=== PATIENT | female | born 1935 | race Caucasian/White ===

== ENCOUNTER → 2018-06-30 | Outpatient (CLI) | payer MEDICARE ==
[~2018-06-30] MED LIST: AMIODARONE HCL200 MG PO; BENEFIBER1 EACH; CALCIUM 1,0001 EACH PO; CENTRUM CHEWAB1 EACH PO; CENTRUM SILVER1 EAC3 PO; CRANBERRY500 M1 PO; DULCOLAX1 EACH; ESIDRIX25 MG PO; EVISTA60 MG PO; FISH OIL500 MG PO; METOPROLOL TART25 MG PO; MOBIC7.5 MG PO; MURO-12815 M1; PANTOPRAZOLE SO40 MG PO; PRESERVISION T1 EACH PO; PROBIOTIC COMP1 EACH; TOPROL XL50 MG PO; VITAMIN D31000 UNI1 PO; VITAMIN E400 UNI1 PO; WARFARIN SODIUM3 MG PO; WARFARIN SODIUM4 MG PO; ZESTRIL20 MG PO; ZOLOFT25 MG PO; ZOLOFT50 MG PO
--- NOTE | 2018-06-30 09:00 | Diagnostic Imaging Report ---
PROCEDURE:EXTREMITY ULTRASOUND COMPARISON:None. INDICATIONS:Arm Swelling TECHNIQUE:Color duplex Doppler ultrasound evaluation analysis was performed in the right upper extremity in the area of clinical concern. FINDINGS: In the area of clinical concern in the right upper arm, there is a 9.1 x 3.5 x 4.9 cm predominately cystic mass. There are internal septations and there is a solid nodular component. There is possibly mild Doppler flow in the solid component. There is also peripheral Doppler flow. The mass appears separate from the adjacent bony structures. CONCLUSION: Indeterminate 9.1 cm predominately cystic mass in the right upper arm with solid component, septations, and possible internal Doppler flow. This mass is incompletely characterized by ultrasound. An MRI with contrast is suggested for further evaluation. Dictated by: CLARENCE KIRKLAND M.D. on 06/30/2018 at 9:06 Electronically approved by: CLARENCE KIRKLAND M.D. on 06/30/2018 at 9:06
== END ==
LOC: US 07:32
DX: M79.89 Other specified soft tissue disorders (principal)
CPT/HCPCS: 76882

== ENCOUNTER → 2018-07-20 | Outpatient (CLI) | payer MEDICARE ==
--- NOTE | 2018-07-20 17:23 | Diagnostic Imaging Report ---
TECHNIQUE: Magnetic resonance imaging of the RIGHT SHOULDER was performed WITHOUT injected contrast. HISTORY: Arm swelling, rupture of tendon COMPARISON: MRI of the right humerus July 06, 2018 FINDINGS: MUSCLES AND TENDONS: Rotator Cuff: Tendons: Supraspinatus and Infraspinatus: A full-thickness tear of the anterior supraspinatus tendon, the full-thickness defect measures 1 cm (AP) x 2.4 cm (ML). Teres Minor: Intact Subscapularis: Full-thickness tearing of the superior fibers with 1.1 cm of medial retraction. The biceps kaela is not visible. Muscles: Moderate supraspinatus and mild infraspinatus atrophy. Biceps Tendon: The long head of the biceps tendon is not seen within the intertubercular groove or adjacent to the proximal humerus. GLENOHUMERAL JOINT: Glenoid Labrum: Complex tearing and attenuation, most notably the superior labrum. Articular Cartilage: Diffuse low-grade erosion. Joint Fluid: Trace effusion. ACROMIOCLAVICULAR JOINT: Moderate hypertrophic degenerative changes of the acromioclavicular joint. Synovitis and small effusion. BONE: The acromion is unremarkable. No focal or infiltrative bone marrow replacing abnormality. No acute fracture. SOFT TISSUES: Otherwise, unremarkable. IMPRESSION: 1. 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 2. Full-thickness tear involving the anterior supraspinatus tendon. 3. Full-thickness tear involving the superior subscapularis tendon. 4. Moderate acromioclavicular and glenohumeral degenerative changes, including degenerative tearing of the superior labrum. Signed by: Dr. Keny De Jesus D.O., M.M.M. on 07/20/2018 5:19 PM
== END ==
LOC: MRI 15:39
DX: M79.89 Other specified soft tissue disorders (principal)

== ENCOUNTER → 2021-05-20 | Outpatient (CLI) | payer MEDICARE | LOC: US 10:19 | PROVIDERS: ATTEND Internal Medicine Nephrology | DX: N18.32 Chronic kidney disease, stage 3b (principal) | CPT/HCPCS: 76770; 76857 ==

== ENCOUNTER 2021-08-13 16:22 | Emergency (ER) | payer MEDICARE ==
[~2021-08-13] VITALS: Ht 162.6 cm; Wt 64.4 kg
[2021-08-13] MEDS ORDERED: ASPIRIN 81 MG CHEW TAB PO ONE (17:00)
[2021-08-13 17:07] LABS: BASOPHILS % 0.8 % (0.0-1.0); EOSINOPHILS # (AUTO) 0.2 (0.0-0.4); EOSINOPHILS % 3.4 % (0.0-6.0); HEMATOCRIT 34.8 % (34.2-44.1); HEMOGLOBIN 10.7 g/dL (12.0-16.0); LYMPHOCYTES # (AUTO) 1.2 (1.0-3.2); LYMPHOCYTES % 23.9 % (18.0-39.1); MEAN CORPUSCULAR HEMOGLOBIN 29.4 pg (28-32); MEAN CORPUSCULAR HGB CONC 30.7 g/dL (31-35); MEAN CORPUSCULAR VOLUME 95.6 fL (81-99); MONOCYTES # (AUTO) 0.6 (0.2-0.8); NEUTROPHILS # (AUTO) 2.9 (2.1-6.9); NEUTROPHILS % 59.7 % (38.7-80.0); PLATELET COUNT 180 x10e3/uL (140-360); RED BLOOD COUNT 3.64 x10e6/uL (3.6-5.1); RED CELL DISTRIBUTION WIDTH 14.6 % (11.7-14.4)
[2021-08-13 17:25] LABS: ALBUMIN 3.6 g/dL (3.5-5.0); ALBUMIN/GLOBULIN RATIO 1.1 (0.8-2.0); ANION GAP 11.6 mmol/L (8-16); CALCIUM 8.9 mg/dL (8.4-10.2); CREATININE, SERUM 1.57 mg/dL (0.57-1.11); POTASSIUM 4.6 mmol/L (3.5-5.1)
[2021-08-13 17:31] LABS: CREATINE KINASE MB 2.2 ng/mL (0-5.0)
== END 2021-08-13 19:02 | disposition home or self-care (01) ==
LOC: ER 16:59
DX: R10.13 Epigastric pain (principal); Z87.19 Personal history of other diseases of the digestive system
CPT/HCPCS: 36415; 71046; 80053; 82550; 82553; 84484; 85025; 93005; 99283